=== PATIENT | male | born 1980 | race African-American/Black ===

== ENCOUNTER 2024-10-15 20:52 | Emergency (ER) | payer MEDICAID, OTHER ==
[~2024-10-15] VITALS: Ht 182.9 cm; Wt 70.7 kg
[~2024-10-15 20:52] MED LIST: MOTRIN; TYLENOL
[2024-10-15 21:08] VITALS: BP 152/91; PULSE 89; RESP 16; TEMP 36.8; O2SAT 98
== END 2024-10-15 23:22 | disposition home or self-care (01) ==
LOC: ER 20:52
DX: R76.11 Nonspecific reaction to tuberculin skin test without active tuberculosis (principal); Z88.0 Allergy status to penicillin; Z88.2 Allergy status to sulfonamides; Z79.899 Other long term (current) drug therapy
CPT/HCPCS: 71045; 99283